=== PATIENT | female | born 1955 | race Caucasian/White ===

== ENCOUNTER 2018-01-04 15:30 | Inpatient (IN) ==
[2018-01-04 17:02] LABS: Blood Urea Nitrogen 13 mg/dl (6-20)
[2018-01-04 17:24] LABS: Appearance,Urine HAZY; Bacteria,Urine FEW /hpf (0); Bilirubin,Urine NEG (NEG); Color,Urine YELLOW; Glucose,Urine (UA) NEGATIVE (NEG); Leukocyte Esterase,Urine NEG /uL (NEG); Mucus,Urine FEW /hpf (0); Protein,Urine NEG (NEG); Specific Gravity,Urine 1.011 (1.000-1.035); Urine Blood 0.03 mg/dL (<0.03); Urine RBC 1 /hpf (0-1); Urine Squamous Epithelial Cell 1 /hpf (0-4); Urine WBC 1 /hpf (0-4); Urobilinogen,Urine NEG (NEG)
[2018-01-04 17:25] LABS: Basophils # (Auto) 0 K/mcL (0.0-0.3); Basophils % (Auto) 0.4 % (0.0-2.0); Eosinophils # (Auto) 0.2 K/mcL (0.0-0.7); Eosinophils % (Auto) 1.9 % (0.0-7.0); Granulocytes % (Auto) 58.2 % (38.0-78.0); Lymphocytes # (Auto) 2.8 K/mcL (1.5-4.8); Lymphocytes % (Auto) 35.3 % (15.5-49.0); Mean Corpuscular HGB Conc 34.2 g/dL (31.0-36.0); Mean Corpuscular Hemoglobin 31.4 pg (26.0-34.0); Monocytes # (Auto) 0.3 K/mcL (0.1-0.9); Monocytes % (Auto) 4.2 % (1.0-12.0); Platelet Count 444 K/mcL (140-440); RBC 3.92 M/mcL (4.00-5.20); Red Cell Distribution Width 13.5 % (11.5-14.5)
[2018-01-10] MEDS ORDERED: GABAPENTIN 300 MG CAPSULE PO SCH (06:00)
[2018-01-10] MEDS ORDERED: oxyCODONE 10 MG TAB.ER.12H PO SCH (06:00)
[2018-01-10] MEDS ORDERED: CELECOXIB 200 MG CAPSULE PO SCH (06:00)
[2018-01-10] MEDS ORDERED: ceFAZolin 1 GM VIAL IV SCH (06:00)
[2018-01-10] MEDS ORDERED: KETOROLAC 30 MG, ROPIVACAINE HCL/PF 49.5 ML, EPINEPHrine 0.5 MG, 0.9 % SODIUM CHLORIDE ... IJ ONE (07:30)
[2018-01-10 08:50] LABS: Appearance,Urine CLEAR; Bacteria,Urine 0 /hpf (0); Bilirubin,Urine NEG (NEG); Color,Urine YELLOW; Glucose,Urine (UA) NEGATIVE (NEG); Leukocyte Esterase,Urine NEG /uL (NEG); Protein,Urine NEG (NEG); Specific Gravity,Urine 1.013 (1.000-1.035); Urine Blood 0.03 mg/dL (<0.03); Urine RBC 2 /hpf (0-1); Urine Squamous Epithelial Cell < 1 /hpf (0-4); Urine WBC < 1 /hpf (0-4); Urobilinogen,Urine NEG (NEG)
[2018-01-10] MEDS ORDERED: PHENYLEPHRINE 10 MG/ML VIAL IV ONE (10:10)
[2018-01-10] MEDS ORDERED: LIDOCAINE HCL/PF 100 MG/5 ML SYRINGE IV ONE (10:10)
[2018-01-10] MEDS ORDERED: GLYCOPYRROLATE 0.2 MG/ML VIAL IV ONE (10:10)
[2018-01-10] MEDS ORDERED: ONDANSETRON 4 MG/2 ML VIAL IV ONE (10:10)
[2018-01-10] MEDS ORDERED: MIDAZOLAM 2 MG/2 ML VIAL IV ONE (10:10)
[2018-01-10] MEDS ORDERED: ROPIVACAINE HCL/PF 20 ML VIAL IJ ONE (10:10)
[2018-01-10] MEDS ORDERED: KETAMINE 100 MG/ML ML IV ONE (10:10)
[2018-01-10] MEDS ORDERED: TRANEXAMIC ACID 1,000 MG/10 ML VIAL IV ONE (10:10)
[2018-01-10] MEDS ORDERED: PROPOFOL 200 MG/20 ML VIAL IV ONE (10:10)
[2018-01-10] MEDS ORDERED: IPRATROPIUM/ALBUTEROL 3 ML AMPUL.NEB NEB PRN (11:15)
[2018-01-10] MEDS ORDERED: LORazepam 2 MG/ML VIAL IV PRN (11:15)
[2018-01-10] MEDS ORDERED: LACTATED RINGERS 1,000 ML IV SCH (11:15)
[2018-01-10] MEDS ORDERED: METHOCARBAMOL 1,000 MG/10 ML VIAL IV PRN (11:15)
[2018-01-10] MEDS ORDERED: fentaNYL 100 MCG/2 ML VIAL IV PRN (11:15)
[2018-01-10] MEDS ORDERED: HALOPERIDOL LACTATE 5 MG/ML VIAL IV PRN (11:15)
[2018-01-10] MEDS ORDERED: ACETAMINOPHEN 1,000 MG/100 ML BOTTLE IV ONE (11:15)
[2018-01-10] MEDS ORDERED: ONDANSETRON 4 MG/2 ML VIAL IV PRN ×2 (11:15→11:47)
[2018-01-10] MEDS ORDERED: FLEETS ADULT ENEMA PR PRN (11:47)
[2018-01-10] MEDS ORDERED: MAGNESIUM HYDROXIDE 30 ML ORAL.SUSP PO PRN (11:47)
[2018-01-10] MEDS ORDERED: BISACODYL 10 MG SUPP.RECT PR PRN (11:47)
[2018-01-10] MEDS ORDERED: BENZOCAINE/MENTHOL 1 LOZENGE PO PRN (11:47)
[2018-01-10] MEDS ORDERED: TRANEXAMIC ACID 1,000 MG/10 ML VIAL IV SCH (11:47)
[2018-01-10] MEDS ORDERED: POLYETHYLENE GLYCOL 3350 17 GM PACKET PO PRN (11:47)
--- NOTE | 2018-01-10 11:47 | Brief Operative Note ---
Date of procedure: 01/10/18 Pre-op diagnosis: R knee severe DJD Post-op diagnosis: same Procedure: Right robotic assisted total knee arthroplasty Grafts/Implants: Yes (Anne CR 4 femur, 4 tibia, 11 CS insert, 33 patella) Anesthesia: spinal, GLMA Findings: severe valgus deformity Complications: none Surgeon: Chris Jose Patient Care Coordinator: Ruiz Verma Estimated blood loss (cc): 20 Specimens Removed/Pathology: none sent Condition: stable Disposition: PACU
[2018-01-10] MEDS ORDERED: LORazepam 1 MG TABLET PO PRN (11:50)
[2018-01-10] MEDS ORDERED: traMADol 50 MG TABLET PO PRN (11:50)
--- NOTE | 2018-01-10 12:47 | XRay Report ---
CLINICAL INFORMATION: Reason for Exam:Post-op total knee. COMPARISON: None. FINDINGS: Total knee prostheses is anatomically aligned. No osseous abnormality. Periarticular gas and soft tissue swelling seen as expected IMPRESSION: Negative Interpreted and Authenticated by: Elan Velazquez 01/10/18
[2018-01-10] MEDS: KETOROLAC 30 MG/ML VIAL IV SCH ×2 (13:15→18:02)
[2018-01-10] MEDS: 0.9 % SODIUM CHLORIDE 1,000 ML IV SCH ×2 (13:15→21:13)
[2018-01-10] MEDS: 0.9 % SODIUM CHLORIDE 10 ML SYRINGE IV SCH ×2 (14:22→21:13)
[2018-01-10] MEDS: oxyCODONE/APAP 5/325MG TABLET PO PRN ×2 (16:02→20:06)
[2018-01-10] MEDS: GABAPENTIN 300 MG CAPSULE PO SCH ×2 (16:03→20:08)
[2018-01-10] MEDS: ceFAZolin 1 GM VIAL IV SCH (18:00)
[2018-01-10] MEDS: OMEPRAZOLE 20 MG CAPSULE PO SCH ×2 (18:04→20:46)
[2018-01-10] MEDS: lamoTRIgine 100 MG TABLET PO SCH (20:07)
[2018-01-10] MEDS: ASPIRIN 325 MG ENTERIC COATED TABLET PO SCH (20:07)
[2018-01-10] MEDS: DOCUSATE SODIUM 100 MG CAPSULE PO SCH (20:07)
[2018-01-10] MEDS ORDERED: ZOLPIDEM 5 MG TABLET PO PRN (21:00)
[2018-01-10] MEDS ORDERED: QUEtiapine 100 MG TABLET PO SCH (21:00)
[2018-01-10] MEDS ORDERED: SENNOSIDES 1 TABLET PO SCH (21:00)
[2018-01-11] MEDS: 0.9 % SODIUM CHLORIDE 1,000 ML IV SCH (01:05)
[2018-01-11] MEDS: KETOROLAC 30 MG/ML VIAL IV SCH ×3 (01:54→07:21)
[2018-01-11] MEDS ORDERED: 0.9 % SODIUM CHLORIDE 1,000 ML IV SCH (02:00)
[2018-01-11] MEDS: ceFAZolin 1 GM VIAL IV SCH (02:36)
[2018-01-11] MEDS: oxyCODONE/APAP 5/325MG TABLET PO PRN ×2 (05:37→09:11)
[2018-01-11] MEDS: 0.9 % SODIUM CHLORIDE 10 ML SYRINGE IV SCH (06:01)
[2018-01-11] MEDS ORDERED: LEVOTHYROXINE 125 MCG TABLET PO SCH (07:30)
--- NOTE | 2018-01-11 07:46 | Discharge Summary ---
Providers - Providers Patient information: Note initiated : 01/11/18 at 7:44 am Service Date, if different from initiated Date: [] Patient: Alvina Otto 62 y/o F admitted on 01/10/18 for Robotic Total Knee Arthroplasty. Chief Complaint: [] Discharge date: 01/11/18 Hospitalization Hospital course: Pt was admitted for a R Total knee arthroplasty. Pt underwent the procedure on the day of admission. Pt was then transferred to the floor for IV pain meds, IV abx, and PT. Pt discharged on post-op day 1 with appropriate pain medication. Pt will f/u at [facility] in 2 weeks. Discharge diagnosis: R knee osteoarthrosis Exam - Exam Clean and dry: Yes Weight bearing status: as tolerated Ortho Discharge - TKA - Patient Instructions Diet: Regular Diet Activity: activity as tolerated Total Knee Protocol: For Total Knee: Start ROM RONALD with stationary bike or rocking chair. Work on gaining full extension of knee. Posterior dislocation precautions provided. Hip abductor strengthening and gait training instructions provided. Apply Cryocuff as instructed. Dressing Care: May shower in 2 days - Follow Up Plan Disposition: Home, Self-Care Prognosis: Good Rehab Potential: Good Overall status at discharge: patient is progressing back to baseline - Orders For Discharge Prescriptions: Aspirin [Ecotrin] 325 mg PO BID #30 tab.ec oxyCODONE/APAP [Percocet 5-325 mg] 1 - 2 tab PO Q4HP PRN #80 tab PRN Reason: Pain Level 3-6 Pending Studies Resuscitation Status Full Code Diet Regular Diet Start MonJan 10 1149 Aspirin (Ecotrin) 325 mg PO BID [facility] Last Admin: 01/10/18 20:07 Dose: 325 mg Docusate Sodium (Colace) 100 mg PO BID [facility] Last Admin: 01/10/18 20:07 Dose: 100 mg Gabapentin (Neurontin) 300 mg PO TID [facility] Last Admin: 01/10/18 20:08 Dose: 300 mg Admin: 01/10/18 16:03 Dose: 300 mg Sodium Chloride (Sodium Chloride 0.9%) 1,000 mls @ 120 mls/hr IV .Q8H20M [facility] Last Admin: 01/11/18 02:00 Dose: 120 mls/hr Ketorolac Tromethamine (Toradol) 30 mg IV Q6 [facility] Stop: 01/12/18 06:01 Last Admin: 01/11/18 07:21 Dose: 30 mg Admin: 01/11/18 03:28 Dose: 30 mg Admin: 01/10/18 18:02 Dose: 30 mg Admin: 01/10/18 13:15 Dose: 30 mg Lamotrigine (Lamictal) 100 mg PO BID [facility] Last Admin: 01/10/18 20:07 Dose: 100 mg Morphine Sulfate (Morphine) 0 mg IV Q1HP PRN PRN Reason: PAIN LEVEL > 6 Last Admin: 01/11/18 07:27 Dose: 4 mg Admin: 01/10/18 23:25 Dose: 4 mg Admin: 01/10/18 20:47 Dose: 2 mg Admin: 01/10/18 20:16 Dose: 2 mg Admin: 01/10/18 18:01 Dose: 4 mg Admin: 01/10/18 14:22 Dose: 4 mg [facility] Admin: 01/10/18 20:46 Dose: 40 mg Admin: 01/10/18 18:04 Dose: Not Given Oxycodone/Acetaminophen (Percocet 5-325 Mg) 0 tab PO Q4HP PRN PRN Reason: PAIN LEVEL 3-6 Last Admin: 01/11/18 05:37 Dose: 1 tab Admin: 01/10/18 20:06 Dose: 2 tab Admin: 01/10/18 16:02 Dose: 2 tab Quetiapine Fumarate (Seroquel) [address] [facility] Last Admin: 01/10/18 20:07 Dose: 600 mg Senna (Senokot) [address] [facility] Last Admin: 01/10/18 20:07 Dose: 2 tab Sodium Chloride (Saline Flush) 10 ml IV Q8 [facility] Last Admin: 01/11/18 06:01 Dose: Not Given Admin: 01/10/18 21:13 Dose: Not Given Admin: 01/10/18 14:22 Dose: Not Given Zolpidem Tartrate (Ambien) 5 mg PO [facility] PRN PRN Reason: Insomnia Last Admin: 01/10/18 20:47 Dose: 5 mg Shift Summary 01/11/18 04:16 Shift Summary by Natali Red Alert and oriented. Medicated with 2 tabs Percocet and 4mg total of morphine at , then 4mg Morphine for 8/10 pain at 5. VS taken at 0330 resulted in BP of 64/41, pt was awake, alert and oriented, asymptomatic. Pt did receive home dose of 600mg Seroquel and 5mg Ambien at HS. Notified MD, he stated since she was asymptomatic to monitor with MIV increased to 120mls/hr. BP for rest of night has been fluctuating between 70s/40s to 90s/60s depending on whether she is awake. Pain has started to increase this am but no other meds beside Toradol has been given, she understands the reasoning why and has not been asking for any. There is a moderate amount of drainage from below the knee cap on the dressing that has been reinforced with ABD and MARI, has not bled through through the night. Up with SBA and FWW. UO is large amounts. AV boots on, ice pack used. Placed on 2L of O2 while asleep. Will update at bedside. Initialized on 01/11/18 04:16 - END OF NOTE
[2018-01-11] MEDS: OMEPRAZOLE 20 MG CAPSULE PO SCH (07:52)
[2018-01-11] MEDS ORDERED: MULTIVIT,THER IRON,CA,FA & MIN 1 TABLET PO SCH (09:00)
[2018-01-11] MEDS ORDERED: OLMESARTAN MEDOXOMIL 20 MG TABLET PO SCH (09:00)
[2018-01-11] MEDS ORDERED: CALCIUM W/VIT D3 500 MG TABLET PO SCH (09:00)
[2018-01-11] MEDS ORDERED: FLUoxetine HCL 20 MG CAPSULE PO SCH (09:00)
[2018-01-11] MEDS ORDERED: HYDROCHLOROTHIAZIDE 12.5 MG CAPSULE PO SCH (09:00)
[2018-01-11] MEDS: ASPIRIN 325 MG ENTERIC COATED TABLET PO SCH (09:05)
[2018-01-11] MEDS: DOCUSATE SODIUM 100 MG CAPSULE PO SCH (09:05)
[2018-01-11] MEDS: GABAPENTIN 300 MG CAPSULE PO SCH (09:05)
[2018-01-11] MEDS: lamoTRIgine 100 MG TABLET PO SCH (09:05)
--- NOTE | 2018-01-11 09:35 | Operative Note ---
DATE OF OPERATION: 01/10/2018 PREOPERATIVE DIAGNOSIS: Right knee severe osteoarthritis. POSTOPERATIVE DIAGNOSIS: Right knee severe osteoarthritis. PROCEDURE PERFORMED: Right robotic-assisted total knee arthroplasty placing a Anne Triathlon size 4 cruciate retaining femoral component, size 4 tibial baseplate, an 11 X3 mm cruciate substituting baseplate with a 33 patella. SURGEON: Chris Jose MD. SUPERVISOR TESTING: Jose Verma PA-C. ANESTHESIA: Spinal plus general. DRAINS: None. SPECIMENS: Bone cuts, which were discarded. BLOOD LOSS: 30 mL COMPLICATIONS: None. POSTOPERATIVE CONDITION: Stable. INDICATIONS FOR SURGERY: This is a 62-year-old female who has had longstanding worsening right knee pain as well as worsening valgus deformity. X-rays showed complete bone on bone articulation of the lateral compartment. FINDINGS AT SURGERY: As above. Post-implantation showed good limb alignment, patellar tracking, and stability. PROCEDURE IN DETAIL: The patient had been seen preoperatively. Informed consent had been obtained after discussion of risks, benefits of surgery. Risks including, but not limited to, bleeding, possibly requiring transfusion; infection, possibly requiring implant removal and prolonged IV antibiotics; injury to nerves, blood vessels, and other surrounding structures; anesthetic risks; incomplete or no resolution of symptoms; stiffness; swelling; pain; instability; DVT and pulmonary embolus risks; and the possibility of needing further revision surgery. She understood these risks and wished to proceed. Correct operative site was marked and the patient was given spinal anesthesia and then taken to the operating room and LMA was given. Right lower extremity then carefully prepped and draped in normal sterile fashion and a timeout performed verifying patient name, operative site, and plan. A scalpel was used through skin and subcutaneous tissue along the midline anteriorly and then IrriSept was irrigated. Medial parapatellar arthrotomy was made. A large effusion was suctioned. A limited subperiosteal exposure was done of the anterior, medial and proximal tibia. We then placed our femoral and tibial checkpoints. We went ahead and made two stab incisions over the femur and two over the tibia and bicortical pins placed. We then connected the arrays. Hip center of rotation was verified along with the green probe on the medial and lateral malleoli. We then did our double checks of our checkpoints and then used the blue probe to do our mapping. Once this was completed, a rongeur was used to remove osteophytes and then our flexion, extension gaps were checked at 15 degrees and 90 degrees of flexion. Once this was completed, we adjusted our implant. Due to the laxity of the joint it required distalization to the point of almost no contact on the lateral condyle as well as pretty substantial proximal movement of the tibia almost to the point of extremely thin removal to get balanced gaps. Once this was adjusted to her satisfaction we then used the robotic assistance to make our bone cuts. The tibia was marked for external rotation and pinned into place. We then used a curved osteotome to remove any posterior osteophytes. Femur trial was impacted and pinned and then peg holes were drilled. The 9 insert trial was placed which showed reasonably good stability. The knee was taken into extension and went all the way down to 1 degree. We then prepared the patella freehand technique and medialized maximally. A limited lateral facetectomy was performed. Holes were drilled and a patellar trial placed. The knee was checked and found to be very stable with good tracking. We opened definitive implants, except for the tibial insert. The trial implants were removed. We filled the joint with IrriSept and then injected pain cocktail while cement was mixed. Once this was completed, we used pulse lavage with saline and then a CO2 gun to clean the cancellous bone surfaces, and then antibiotic Palacos was used to cement the tibia followed by the femur. Insert trial was placed and excess cement was removed. We did note, however, that her PCL appeared to be partially avulsing. We then cemented our patellar button. The knee was held in full extension while cement fully hardened. Once this was completed, final inspection was done and we removed cement fragments. The knee did seem somewhat loose in flexion, so we removed this and placed a size 15 insert, which was good stability without hyperextension of the knee. We went ahead and opened the 8 and pain cocktail was injected in the posterior capsules. We then irrigated with saline and then impacted the insert. Patellar tracking was good, so we placed the knee in approximately 45 degrees of flexion. Checkpoints had been removed. We used #2 FiberWire [id number] around the superior quadrant of the patella, #1 Vicryl [id number] around the inferior quadrant, running #1 Vicryl for patellar tendon and quad tendon. IrriSept was irrigated again, after a minute pulse lavage and then 2-0 Monocryl for subcutaneous and paolo for skin. Pins were removed proximally and distally and then paolo used for the pin holes. Once dressings were applied, tourniquet was released. The patient was awakened, extubated, and transferred to recovery in stable condition. [email or web address] Job ID: [id number] Doc ID: [id number] Chris Jose MD
== END 2018-01-11 10:50 | disposition home or self-care (01) | DRG 470 ==
LOC: MEDSUR 01-10 07:04
PROVIDERS: ADMIT Orthopaedic Surgery; ATTEND Orthopaedic Surgery